=== PATIENT | male | born 1995 | race Caucasian/White ===

== ENCOUNTER 2021-07-07 05:22 | Emergency (ER) | payer OTHER ==
[~2021-07-07] VITALS: Ht 188 cm; Wt 88.5 kg
[~2021-07-07 05:22] MED LIST: NOHOMEMEDICATIONS
[2021-07-07] MEDS ORDERED: IBUPROFEN 800800 MG PO (07:23)
[2021-07-07] MEDS ORDERED: FLEXERIL PO (07:23)
[2021-07-07 07:30] VITALS: BP 125/71
== END 2021-07-07 07:33 | disposition home or self-care (01) ==
LOC: ER 05:22
DX: M54.2 Cervicalgia (principal); M62.838 Other muscle spasm